=== PATIENT | female | born 1945 | race Caucasian/White ===

== ENCOUNTER 2019-04-08 12:10 | Emergency (ER) | payer MEDICARE, SELFPAY ==
--- NOTE | ~2019-04-08 | XR_ITS ---
EXAMINATION: XR chest 2V EXAM DATE: 04/08/2019 13:49 INDICATION: Mid chest pain. TECHNIQUE: Frontal and lateral projections of the chest obtained and reviewed. There is no prior salome dy for comparison. FINDINGS: Borderline heart size. No confluent consolidation, pneumothorax or pleural effusion suspec sam. Sternotomy wires are present without findings to suggest sternal dehiscence. Left shoulder arthr oplasty. IMPRESSION: No acute cardiopulmonary findings. Reviewed, dictated and finalized at location B. [facility]
[2019-04-08 12:49] VITALS: BP 113/65; PULSE 62; RESP 22; TEMP 36.6; O2SAT 100
--- NOTE | 2019-04-08 13:14 | ECG_ITS ---
Measurements Intervals [place] Rate: 70 P: -58 NV: 120 QRS: 16 QRSD: 90 T: 0 QT: 409 QTc: 443 Interpretive Statements SINUS RHYTHM WITH MARKED SINUS ARRHYTHMIA T WAVE ABNORMALITY IN ANTEROSEPTAL LEADS- CONSIDER ISCHEMIA BASELINE ARTIFACT- I, II, III, AVR, AVL ABNORMAL ECG Electronically Signed On 04-08-2019 16:16:27 [employer] by Angelo Longo D.O.
[2019-04-08 13:29] LABS: Basophils Absolute Auto 0.1 K/mm3 (0.0-0.1); Basophils Percent Auto 0.6 % (0.2-1.2); Eosinophils Absolute Auto 0.1 K/mm3 (0-0.3); Eosinophils Percent Auto 0.9 % (0-4.4); Hematocrit 45.3 % (37.0-47.0); Hemoglobin 15.1 g/dL (12.0-15.0); Immature Granulocyte Absolute 0.08 K/mm3 (0.00-0.031); Immature Granulocyte Percent A 0.6 % (0-0.5); Lymphocytes Absolute Auto 2.09 K/mm3 (0.9-3.2); Lymphocytes Percent Auto 15.1 % (18.3-44.2); Mean Corpuscular HGB Conc 33.3 g/dl (32-36); Mean Corpuscular Hemoglobin 27.1 pg (26-34); Mean Corpuscular Volume 81.3 fl (80-100); Mean Platelet Volume 11.1 fl (7.4-10.4); Monocytes Absolute Auto 0.9 K/mm3 (0.1-0.6); Monocytes Percent Auto 6.4 % (2.6-8.5); Neutrophils Absolute Auto 10.6 K/mm3 (1.3-6.7); Neutrophils Percent Auto 76.4 % (45.5-73.1); Platelet Count Result 258 k/mm3 (150-375); Red Blood Count 5.57 M/mm3 (4.2-5.4); Red Cell Distribution Width 14.3 % (11.5-14.5); White Blood Count 13.8 K/mm3 (4.5-10.0)
[2019-04-08 13:40] LABS: Partial Thromboplastin Time 22.7 SECONDS (22.3-36.8)
[2019-04-08 13:41] LABS: Blood Urea Nitrogen 21 mg/dL (7-17); Calcium 9.4 mg/dL (8.4-10.2); Carbon Dioxide 28 mmol/L (22-30); Chloride 94 mmol/L (98-107); Estimated CRCL calculation 77 ml/min; Estimated Glomerular Filt Rate > 60; Glucose 158 mg/dL (65-105); Potassium 4.3 mmol/L (3.4-5.0); Sodium 133 mmol/L (137-145)
[2019-04-08 13:53] LABS: Troponin I < 0.012 ng/mL (0.000-0.034)
[2019-04-08 14:41] VITALS: PULSE 62
[2019-04-08 14:42] VITALS: BP 131/73; PULSE 61; RESP 16; O2SAT 97
--- NOTE | 2019-04-08 15:13 | ED.CHESTPAIN ---
HPI - Chest Pain General Chief Complaint: Chest Pain Stated Complaint: CHEST PAIN [id number] Time Seen by Provider: 04/08/19 15:04 Source: patient Mode of arrival: ambulatory Limitations: no limitations History of Present Illness HPI narrative: The pt is a 73 y/o female who presents to the ED c/o midsternal to right-sided CP onset three months ago. She describes her pain as sharp. Pt states that today's episode began while driving here today for a bladder test. Pt reports nausea and cough, but denies vomiting and fever. She states that she has not taken any medication today for pain. Pt notes that she previously has had open heart surgery. MD complaint: chest pain Onset (ago): month(s) (3) Pain location: right chest and other (Midsternal) Quality: sharp Associated symptoms: nausea and cough Related Data Home Medications Medication Instructions Recorded Confirmed Klor-Con 04/08/19 Lyrica 04/08/19 Nitrostat 04/08/19 acetaminophen 04/08/19 albuterol sulfate 04/08/19 alprazolam 04/08/19 aspirin 04/08/19 canagliflozin 04/08/19 dicyclomine 04/08/19 furosemide 04/08/19 glipizide 04/08/19 insulin glargine 04/08/19 lisinopril 04/08/19 magnesium oxide 04/08/19 meclizine 04/08/19 mecobalamin (vitamin B12) 04/08/19 metoprolol tartrate 04/08/19 oxybutynin chloride 04/08/19 ropinirole 04/08/19 simvastatin 04/08/19 Allergies Allergy/AdvReac Type Severity Reaction Status Date / Time meperidine [From Demerol] Allergy Vomiting Verified 04/08/19 14:43 morphine Allergy Vomiting Verified 04/08/19 14:43 Sulfa (Sulfonamide Allergy Vomiting Verified 04/08/19 14:43 Antibiotics) Review of Systems Review of Systems: Narrative: Review of Systems Constitutional: Negative for fever. Respiratory: Positive for cough. Cardiovascular: Positive for midsternal to right-sided sharp chest pain. Gastrointestinal: Positive for nausea. Negative for vomiting. All systems reviewed & are unremarkable except as noted in HPI and below PMFSH Past Medical History Medical History (Updated 04/08/19 @ 16:57 by Avis eLe MD) Disorder of heart Unspecified Surgical History Surgical History (Updated 04/08/19 @ 15:22 by Branden Campos) History of open heart surgery Social History Social History (Updated 04/08/19 @ 15:22 by Branden Campos) Smoking status: Unknown if ever smoked Gender identity (if verbalized by the patient): Female Exam Narrative: Exam Narrative: Constitutional: Appears well-developed. No distress. HENT: Head: Normocephalic. Nose: Nose normal. Mouth/Throat: Oropharynx is clear and moist. Eyes: Conjunctiva are normal. Neck: Normal range of motion. Neck supple. Cardiovascular: Normal rate and regular rhythm. Pulmonary/Chest: Effort normal and breath sounds normal. Abdominal: Soft. There is no tenderness. Musculoskeletal: Normal range of motion. No edema. Neurological: Alert and oriented to person, place, and time. Skin: Skin is warm. No pallor. Psychiatric: Normal mood and affect. Course Vital Signs Vital signs: Vital Signs Temperature 36.6 C 04/08/19 12:49 Pulse Rate 62 04/08/19 12:49 Respiratory Rate 22 H 04/08/19 12:49 Blood Pressure 113/65 04/08/19 12:49 Pulse Oximetry 100 04/08/19 12:49 Temperature 36.6 C 04/08/19 12:49 Pulse Rate 61 04/08/19 14:42 Respiratory Rate 16 04/08/19 14:42 Blood Pressure 131/73 04/08/19 14:42 Pulse Oximetry 98 04/08/19 15:38 MDM - Chest Pain Lab Data Result diagrams: 04/08/19 13:22 04/08/19 13:22 Labs: Lab Results 04/08/19 04/08/19 04/08/19 Range/Units 13:22 13:22 13:22 WBC 13.8 H (4.5-10.0) K/mm3 RBC 5.57 H (4.2-5.4) M/mm3 Hgb 15.1 H (12.0-15.0) g/dL Hct 45.3 (37.0-47.0) % MCV 81.3 (80-100) fl MCH 27.1 (26-34) pg MCHC 33.3 (32-36) g/dl RDW 14.3 (11.5-14.5) % Plt Count 258 (150-375)
[2019-04-08] MEDS: KETOROLAC 15 MG/ML VIAL (*BKC) IV PUSH (15:35)
[2019-04-08 15:38] VITALS: O2SAT 98
[2019-04-08 15:55] LABS: D Dimer 0.27 ug/mL (<0.48)
[2019-04-08 16:47] LABS: Troponin I < 0.012 ng/mL (0.000-0.034)
[2019-04-08 17:11] VITALS: BP 131/70; PULSE 75; RESP 18; O2SAT 96
== END 2019-04-08 17:15 | disposition home or self-care (01) ==
PROVIDERS: Emergency Provider Emergency Medicine
DX: R07.89 Other chest pain (principal); R09.1 Pleurisy; R94.31 Abnormal electrocardiogram [ECG] [EKG]
CPT/HCPCS: 36415; 71046; 80048; 84484; 85025; 85380; 85610; 85730; 93005; 96374; 99284; J1885